=== PATIENT | male | born 1960 | race Caucasian/White ===

== ENCOUNTER 2018-11-29 15:42 | Emergency (ER) | payer OTHER ==
[~2018-11-29] VITALS: Ht 165.1 cm; Wt 111.1 kg
[2018-11-29] MEDS ORDERED: COZAAR 25 MG TA25 M1 PO (16:15)
[2018-11-29] MEDS ORDERED: ASPIR 8181 MG PO (16:16)
[2018-11-29] MEDS ORDERED: CRESTOR20 MG PO (16:16)
[2018-11-29] MEDS ORDERED: OMEPRAZOLE20 M2 PO (16:16)
[2018-11-29 16:31] LABS: ABSOLUTE NEUTROPHILS 4.8 thou/uL (1.4-8.2); BASOPHILS 0.5 % (0.0-2.0); EOSINOPHILS 1.8 % (0.0-3.0); HEMATOCRIT 49.5 % (42.0-52.0); LYMPHOCYTES 19.3 % (24.0-44.0); MCH 30.8 pg (26.0-34.0); MCHC 34.3 g/dL (28.0-37.0); MCV 89.7 fL (80.0-100.0); MONOCYTES 7.4 % (1.0-8.0); PLATELET COUNT 207 thou/uL (150-400); RBC 5.51 mil/uL (4.50-6.00); RDW 13.4 % (10.5-14.5); WBC 6.8 thou/uL (4.0-11.0)
[2018-11-29 16:36] LABS: ANION GAP 12 mmol/L (7-16); BUN 12 mg/dL (7-18); CALCIUM 9.1 mg/dL (8.5-10.1); CHLORIDE 106 mmol/L (98-107); CO2 24 mmol/L (21-32); CREATININE 0.9 mg/dL (0.7-1.3); GLUCOSE 86 mg/dL (74-106); POTASSIUM 3.7 mmol/L (3.5-5.1); SODIUM 142 mmol/L (136-145)
[2018-11-29 16:46] LABS: SGOT 19 U/L (15-37); SGPT 42 U/L (30-65); TOTAL BILIRUBIN 0.9 mg/dL (<0.1-1.0); TOTAL PROTEIN 7.5 g/dL (6.4-8.2); TROPONIN-I <0.06 ng/mL (<0.06)
[2018-11-29 17:20] VITALS: BP 138/101
--- NOTE | 2018-11-30 19:53 | EKG ---
[place] [address] [facility] [place] [address] ELECTROCARDIOGRAM REPORT Name: GEOVANNA TRIPP Room #: DEP ALLA Rangel#: [id number] ������������������ Admission: 11/29/18 ������������������ Attend Phys: Discharge: 11/29/18 ������������������ Date of : 60 Report #: [id number] ����������������������������������������������������������������� [id number] THIS REPORT FOR: //name// [facility] ED Test Date: 2018-11-29 Test Time: 15:48:38 Pat Name: GEOVANNA TRIPP Department: Room: Gender: D[employer] Manager: CW : 1960 Requested By: Molly Deluca Order Number: [id number] MD: Sumeet Díaz Measurements Intervals [place] Rate: 89 P: 15 OK: 165 QRS: 3 QRSD: 100 T: 16 QT: 383 QTc: 467 Interpretive Statements Sinus rhythm Low voltage, precordial leads Compared to ECG 06/14/2008 01:48:40 Low QRS voltage now present Intraventricular conduction delay no longer present Electronically Signed On 11-30-2018 19:53:00 CDT by Sumeet Díaz [email or web address] ��������������������������������������������� <ELECTRONICALLY SIGNED> ���������������������������������������� By: Sumeet Díaz MD ��������������������������������������������� 11/30/181952 1548 1548 Sumeet Díaz MD /PETER
== END 2018-11-29 17:20 | disposition home or self-care (01) ==
LOC: ER 15:42
PROVIDERS: Physician Assistant
DX: I10 Essential (primary) hypertension (principal); R07.89 Other chest pain; R42 Dizziness and giddiness; E78.5 Hyperlipidemia, unspecified; F41.9 Anxiety disorder, unspecified; E78.00 Pure hypercholesterolemia, unspecified; Z88.0 Allergy status to penicillin

== ENCOUNTER → 2019-07-10 | Outpatient (CLI) | payer OTHER ==
[~2019-07-10] MED LIST: ASPIR 8181 MG PO; COZAAR 25 MG TA25 M1 PO; CRESTOR20 MG PO; OMEPRAZOLE20 M2 PO
== END ==
LOC: CAT 14:25
DX: Z13.6 Encounter for screening for cardiovascular disorders (principal); E78.00 Pure hypercholesterolemia, unspecified; I25.10 Atherosclerotic heart disease of native coronary artery without angina pectoris

== ENCOUNTER → 2019-12-01 | Outpatient (CLI) | payer OTHER | LOC: SJCVCIMAG 11:19 | PROVIDERS: ATTEND Internal Medicine Cardiovascular Disease | DX: I25.10 Atherosclerotic heart disease of native coronary artery without angina pectoris (principal); I10 Essential (primary) hypertension ==